=== PATIENT | female | born 1995 | race African-American/Black ===

== ENCOUNTER 2017-04-09 08:51 | Emergency (ER) | payer OTHER ==
[~2017-04-09] VITALS: Ht 162.6 cm; Wt 80.4 kg
[~2017-04-09 08:51] MED LIST: GABAPENTIN300 MG PO; NALTREXONE HCL50 MG PO; SEROQUEL100 MG PO; SERTRALINE PO
[2017-04-09 08:57] VITALS: BP 120/80
[2017-04-09] MEDS ORDERED: INDOCIN50 MG PO (11:40)
== END 2017-04-09 12:28 | disposition home or self-care (01) ==
LOC: EME 08:51
DX: M79.671 Pain in right foot (principal); F17.200 Nicotine dependence, unspecified, uncomplicated
CPT/HCPCS: 73610; 73630; 99281; 99284

== ENCOUNTER 2018-02-22 19:09 | Emergency (ER) | payer OTHER ==
[~2018-02-22] VITALS: Ht 162.6 cm; Wt 73.0 kg
[~2018-02-22 19:09] MED LIST changes: +INDOCIN50 MG PO
[2018-02-22 19:13] VITALS: BP 125/68
[2018-02-22] MEDS ORDERED: GABAPENTIN400 MG PO (19:36)
== END 2018-02-22 19:55 | disposition home or self-care (01) ==
LOC: EME 19:09
DX: Z76.0 Encounter for issue of repeat prescription (principal); F41.9 Anxiety disorder, unspecified; F17.200 Nicotine dependence, unspecified, uncomplicated; Z91.14 Patient's other noncompliance with medication regimen
CPT/HCPCS: 99281; 99283